=== PATIENT | male | born 1945 | race Caucasian/White ===

== ENCOUNTER 2017-04-26 16:58 | Emergency (ER) | payer MEDICARE ==
[~2017-04-26] VITALS: Ht 175.3 cm; Wt 100.0 kg
[2017-04-26 17:00] VITALS: BP 174/82; PULSE 79; RESP 14; TEMP 99.3; O2SAT 98
--- NOTE | 2017-04-26 19:37 | PD ---
HPI Chief Complaint: Skin Problem Time Seen by Provider: 19:30 Travel History International Travel<30 days: No Contact w/Intl Traveler<30days: No Traveled to known affect area: No History of Present Illness HPI 71-year-old white male presents to emergency department with complains of a lump to the back of his scalp which he noted today when he lay down and watch TV. He denies any trauma. No recent illness. Pain is mild. No alleviating or exacerbating effects. PFSH Past Medical History Narrative Medical Hypercholesterolemia, diabetes, hypertension, coronary artery disease, depression Hx Anticoagulant Therapy: Yes Cardiovascular Problems: Yes Cerebrovascular Accident: Yes Diabetes: Yes Tetanus Vaccination: < 5 Years Past Surgical History Narrative Surgical CABG, PTCA with stent Social History Alcohol Use: Yes Tobacco Use: No Review of Systems General / Constitutional: No: Fever Eyes: No: Visual changes HENT: No: Headaches Cardiovascular: No: Chest Pain or Discomfort Respiratory: No: Shortness of Breath Gastrointestinal: No: Abdominal Pain Genitourinary: No: Dysuria Musculoskeletal: No: Pain Skin: No Rash Neurologic: No: Weakness Psychiatric: No: Depression Endocrine: No: Polydipsia Hematologic/Lymphatic: No: Easy Bruising Physical Exam Narrative GENERAL: This is a well-nourished, well-developed patient, in no apparent distress. SKIN: Patient is a 1 x 1 cm tender indurated posterior scalp consistent with a developing sebaceous cyst. No erythema or warmth. No fluctuance or pointing. Mildly tender., ecchymoses or lesions. Warm and dry. HEAD: Atraumatic. Normocephalic. EYES: PERRL, EOMI, no discharge or injection. No scleral icterus. EARS: Clear NOSE: Nasal turbinates appear normal. THROAT: Mucosa pink and moist. Airway patent. NECK: Trachea midline. supple, moves head freely. LUNGS: Clear to auscultation. CV: Regular in rhythm. ABDOMEN: Soft nontender. EXT: No clubbing cyanosis or edema. Data Data Last Documented VS Vital Signs Date Time Temp Pulse Resp B/P (MAP) Pulse Ox O2 Delivery O2 Flow Rate FiO2 04/26/17 17:00 99.3 79 14 174/82 (112) 98 MDM Medical Decision Making Medical Screen Exam Complete: Yes Emergency Medical Condition: Yes Medical Record Reviewed: Yes Differential Diagnosis MDM: High Differential diagnoses: Abscess, folliculitis, cellulitis, lymphangitis, abrasion, contact dermatitis Narrative Course This is an infected sebaceous cyst of the scalp Diagnosis Primary Impression: infected is suspicious cyst of the scalp Patient Instructions: General Instructions Additional Instructions: Rest. Elevation. keep clean and dry. remove the packing in two days. Daily wound care with soap, water and Neosporin. Keflex and Bactrim. Follow-up with a primary care doctor in one week. Return to the ER for any problems. Med/Other Pt SpecificInfo: Prescription(s) given Disposition: 01 DISCHARGE HOME Condition: Stable Tony Snider Apr 26, 2017 19:37
[2017-04-26] MEDS ORDERED: CEPH-460 PO (19:39)
[2017-04-26] MEDS ORDERED: BACT800T5 PO (19:39)
== END 2017-04-26 19:45 | disposition home or self-care (01) ==
LOC: NEPK 16:58
DX: L72.3 Sebaceous cyst (principal)
CPT/HCPCS: 99284